=== PATIENT | female | born 1980 | race Caucasian/White ===

== ENCOUNTER 2022-10-20 14:30 | Emergency (ER) | payer SELFPAY ==
[2022-10-20 14:37] VITALS: BP 130/85; PULSE 61; RESP 18; TEMP 97.9
--- NOTE | 2022-10-20 16:15 | ED ---
Psych HPI - General Chief Complaint: Psychiatric Symptoms Stated Complaint: mental health Time Seen by Provider: 10/20/22 16:11 Source: patient - Related Data Allergies Allergy/AdvReac Type Severity Reaction Status Date / Time cephalexin [From Keflex] AdvReac Rash/Hives Verified 10/20/22 14:33 lorazepam [From Ativan] AdvReac Rapid Verified 10/20/22 14:33 Heart Rate Review of Systems ROS Statement: Those systems with pertinent positive or pertinent negative responses have been documented in the HPI. ROS Other: All systems not noted in ROS Statement are negative. Past Medical History Additional Past Medical History / Comment(s): epilepsy, post History of Any Multi-Drug Resistant Organisms: None Reported Past Surgical History: Uterine Ablation Additional Past Surgical History / Comment(s): skin cancer removal, cyst to left breast and cancer. ectopic pregnany with tubal rupture. Past Psychological History: Anxiety, Depression Smoking Status: Never smoker Past Alcohol Use History: Occasional Past Drug Use History: None Reported General Exam Limitations: no limitations Course Vital Signs 10/20/22 14:33 Temperature 97.9 F Pulse Rate 61 Respiratory 18 Rate Blood Pressure 130/85 O2 Sat by Pulse 99 Oximetry Disposition Clinical Impression: Eloped from emergency department Disposition: LEFT AGAINST MEDICAL ADVICE Condition: Undetermined Is patient prescribed a controlled substance at d/c from ED?: No Referrals: None,Stated [Primary Care Provider] - 1-2 days
== END 2022-10-20 17:30 | disposition left against medical advice (07) ==
LOC: EC 14:30
DX: Z53.21 Procedure and treatment not carried out due to patient leaving prior to being seen by health care provider (principal); Z86.59 Personal history of other mental and behavioral disorders; Z88.1 Allergy status to other antibiotic agents; Z88.8 Allergy status to other drugs, medicaments and biological substances
CPT/HCPCS: 82075; 99284